=== PATIENT | male | born 1970 | race Caucasian/White ===

== ENCOUNTER 2020-01-09 16:53 | Emergency (ER) | payer OTHER ==
[~2020-01-09] VITALS: Ht 167.6 cm; Wt 77.1 kg
[2020-01-09] MEDS ORDERED: COLCHICINE0.6 MG PO (17:04)
== END 2020-01-09 19:58 | disposition home or self-care (01) ==
LOC: ER 16:53
DX: M10.071 Idiopathic gout, right ankle and foot (principal)

== ENCOUNTER 2021-02-09 08:22 | Outpatient (CLI) | payer OTHER ==
[~2021-02-09 08:22] MED LIST: COLCHICINE0.6 MG PO
== END 2021-02-09 08:31 | disposition home or self-care (01) ==
LOC: RAD 08:22
PROVIDERS: ATTEND General Practice
DX: Q33.8 Other congenital malformations of lung (principal); B20 Human immunodeficiency virus [HIV] disease; M41.84 Other forms of scoliosis, thoracic region

== ENCOUNTER 2021-03-31 06:25 | Emergency (ER) | payer OTHER ==
[~2021-03-31] VITALS: Ht 165.1 cm; Wt 74.8 kg
[2021-03-31] MEDS ORDERED: LOSARTAN POTASS50 MG (06:35)
[2021-03-31] MEDS ORDERED: INDOMETHACIN50 M1 PO (08:21)
== END 2021-03-31 08:31 ==
LOC: ER 06:25
DX: M10.9 Gout, unspecified (principal); I10 Essential (primary) hypertension

== ENCOUNTER 2023-11-06 18:07 | Emergency (ER) | payer OTHER ==
[~2023-11-06] VITALS: Ht 167.6 cm; Wt 78.9 kg
[~2023-11-06 18:07] MED LIST changes: +INDOMETHACIN50 M1 PO; +LOSARTAN POTASS50 MG
[2023-11-06] MEDS ORDERED: COZAAR100 MG PO (18:28)
[2023-11-06] MEDS ORDERED: TOPROL XL50 M1 (18:28)
[2023-11-06] MEDS ORDERED: LOSARTAN-HCTZ1 EAC2 PO (18:29)
[2023-11-06] MEDS ORDERED: TRIUMEQ TABLET1 EACH (18:30)
[2023-11-07] MEDS ORDERED: KETO10TA2 PO (04:53)
== END 2023-11-07 05:02 ==
LOC: ER 18:08
DX: R07.89 Other chest pain (principal)